=== PATIENT | male | born 1950 | race Caucasian/White ===

== ENCOUNTER 2017-05-03 09:09 | Emergency (ER) | payer MEDICARE, BC ==
[2017-05-03 10:34] LABS: ADD MAN DIFF? NO
[2017-05-03 10:40] LABS: WHITE BLOOD COUNT 10.4 10^3/ul (4.8-10.8)
[2017-05-03 10:40] LABS: ABNORMAL IP MESSAGE 1; BASOPHILS % 0.4 % (0.0-2.0); EOSINOPHILS % 0.3 % (0.0-7.0); HEMATOCRIT 32.5 % (42.0-52.0); HEMOGLOBIN 10.4 g/dl (14.0-18.0); LYMPHOCYTES # 1.1 10^3/ul (0.8-2.9); LYMPHOCYTES % 10.9 % (15.0-51.0); MEAN CORPUSCULAR HEMOGLOBIN 27.9 pg (29.0-33.0); MEAN CORPUSCULAR VOLUME 87.1 fl (82.0-101.0); MEAN PLATELET VOLUME 10.4 fl (7.4-10.4); MONOCYTE # 1.8 10^3/ul (0.3-0.9); NEUTROPHIL # 7.3 10^3/ul (1.6-7.5); NEUTROPHILS % 70.8 % (39.0-77.0); NUCLEATED RED BLOOD CELLS% 0.3 /100WBC (0.0-0.0); PLATELET COUNT 275 10^3/UL (140-415); POSITIVE DIFF @See below; RED BLOOD COUNT 3.73 10^6/ul (4.70-6.10); RED CELL DISTRIBUTION WIDTH 15.3 % (11.5-14.5)
[2017-05-03 10:59] LABS: LACTIC ACID 1.4 mmol/L (0.5-2.0)
[2017-05-03 10:59] LABS: ALANINE AMINOTRANSFERASE 26 IU/L (13-69); ALBUMIN 3.9 g/dl (3.3-4.9); ALKALINE PHOSPHATASE 99 IU/L (42-121); ANION GAP 15 (8-16); ASPARTATE AMINO TRANSFERASE 34 IU/L (15-46); BILIRUBIN,INDIRECT 1.8 mg/dl (0-1.1); BILIRUBIN,TOTAL 1.9 mg/dl (0.2-1.3); BLOOD UREA NITROGEN 29 mg/dl (7-20); CARBON DIOXIDE 31 mmol/L (21-31); CHLORIDE 96 mmol/L (97-110); CREATININE 4.16 mg/dl (0.61-1.24); GLUCOSE 114 mg/dl (70-220); POTASSIUM 3.4 mmol/L (3.5-5.1); SODIUM 139 mmol/L (135-144); TOTAL PROTEIN 8.2 g/dl (6.1-8.1)
[2017-05-03 11:00] LABS: INR 1.17; PROTIME 15.1 Sec (11.9-14.9); PT RATIO 1.2
[2017-05-03 11:01] LABS: PARTIAL THROMBOPLASTIN TIME 35.4 Sec (25.0-35.0)
[2017-05-03 11:06] LABS: B-TYPE NATRIURETIC PEPTIDE 1920 PG/ML (0-125)
[2017-05-03 11:09] LABS: TROPONIN-I 0.052 ng/ml (0.00-0.12)
[2017-05-03] MEDS: morphine 2 MG INJ IV (11:36)
[2017-05-03] MEDS: SOD CHLORIDE 0.9% 1,000 ML IV (11:52)
[2017-05-03] MEDS: ONDANSETRON 4 MG INJ IV ×2 (11:52→14:36)
[2017-05-03] MEDS: CEFTRIAXONE 1 GM/50 ML (PMX) 50 ML IVPB (14:36)
[2017-05-03] MEDS: ACETAMINOPHEN 500 MG TAB PO (14:36)
[2017-05-03] MEDS: IBUPROFEN 800 MG TAB PO (14:37)
[2017-05-03 14:39] LABS: ADD UMIC YES; UR ASCORBIC ACID NEGATIVE (NEGATIVE); UR BACTERIA FEW /HPF (NONE SEEN); UR BILIRUBIN (Dip) NEGATIVE (NEGATIVE); UR BLOOD (Dip) NEGATIVE (NEGATIVE); UR CLARITY CLEAR (CLEAR); UR COLOR AMBER (YELLOW); UR GLUCOSE (Dip) NEGATIVE (NEGATIVE); UR KETONES (Dip) NEGATIVE (NEGATIVE); UR LEUKOCYTE ESTERASE (Dip) NEGATIVE Leu/ul (NEGATIVE); UR NITRITE (Dip) NEGATIVE (NEGATIVE); UR RBC 2 /HPF (0-5); UR SPECIFIC GRAVITY (Dip) 1.016 (1.003-1.030); UR TOTAL PROTEIN (Dip) 3+ mg/dl (NEGATIVE); UR UROBILINOGEN (Dip) 2+ mg/dL (NEGATIVE); UR WBC 3 /HPF (0-5)
[2017-05-03] MEDS: IPRATROPIUM (NEB) 0.5 MG/2.5 ML AMP NEB (14:57)
[2017-05-03] MEDS: ALBUTEROL 0.083% (NEB) 2.5 MG/3 ML AMP NEB (14:57)
== END 2017-05-03 16:08 | disposition home or self-care (01) ==
LOC: FTE 09:09
DX: J20.9 Acute bronchitis, unspecified (principal); N18.6 End stage renal disease; Z99.2 Dependence on renal dialysis
CPT/HCPCS: 36415; 71045; 80053; 81001; 83605; 83880; 84484; 85025; 85610; 85730; 87040; 87400; 93005; 94664; 96374; 96375; 96376; 99285-25

== ENCOUNTER 2017-05-06 09:38 | Emergency (ER) | payer MEDICARE, BC ==
[2017-05-06 12:38] LABS: URINE BLOOD (Dip) POC Trace-intact (NEGATIVE); URINE GLUCOSE (Dip) POC Negative (NEGATIVE); URINE KETONES (Dip) POC Negative (NEGATIVE); URINE LEUKOCYTE EST (Dip) POC Negative (NEGATIVE); URINE NITRITE (Dip) POC Negative (NEGATIVE); URINE TOTAL PROTEIN POC 2+ (NEGATIVE)
[2017-05-06 12:43] LABS: ADD MAN DIFF? NO
[2017-05-06 12:47] LABS: ABNORMAL IP MESSAGE 1; BASOPHIL # 0.1 10^3/ul (0.0-0.1); BASOPHILS % 0.5 % (0.0-2.0); EOSINOPHILS # 0.3 10^3/ul (0.0-0.5); EOSINOPHILS % 2.1 % (0.0-7.0); HEMATOCRIT 29.3 % (42.0-52.0); HEMOGLOBIN 9.3 g/dl (14.0-18.0); LYMPHOCYTES # 1.5 10^3/ul (0.8-2.9); LYMPHOCYTES % 10.7 % (15.0-51.0); MEAN CORPUSCULAR HEMOGLOBIN 27.7 pg (29.0-33.0); MEAN CORPUSCULAR HGB CONC 31.7 g/dl (32.0-37.0); MEAN CORPUSCULAR VOLUME 87.2 fl (82.0-101.0); MEAN PLATELET VOLUME 9.9 fl (7.4-10.4); MONOCYTES % 14.6 % (0.0-11.0); NEUTROPHIL # 9.7 10^3/ul (1.6-7.5); NEUTROPHILS % 71.2 % (39.0-77.0); PLATELET COUNT 404 10^3/UL (140-415); POSITIVE DIFF @See below; RED BLOOD COUNT 3.36 10^6/ul (4.70-6.10); RED CELL DISTRIBUTION WIDTH 15.5 % (11.5-14.5)
[2017-05-06 12:47] LABS: WHITE BLOOD COUNT 13.6 10^3/ul (4.8-10.8)
[2017-05-06 13:00] LABS: ADD UMIC YES; UR ASCORBIC ACID NEGATIVE (NEGATIVE); UR BILIRUBIN (Dip) NEGATIVE (NEGATIVE); UR BLOOD (Dip) NEGATIVE (NEGATIVE); UR CLARITY CLEAR (CLEAR); UR COLOR YELLOW (YELLOW); UR GLUCOSE (Dip) NEGATIVE (NEGATIVE); UR KETONES (Dip) NEGATIVE (NEGATIVE); UR LEUKOCYTE ESTERASE (Dip) NEGATIVE Leu/ul (NEGATIVE); UR NITRITE (Dip) NEGATIVE (NEGATIVE); UR RBC 1 /HPF (0-5); UR TOTAL PROTEIN (Dip) 2+ mg/dl (NEGATIVE); UR UROBILINOGEN (Dip) 2+ mg/dL (NEGATIVE); UR WBC 3 /HPF (0-5)
[2017-05-06 13:04] LABS: ALANINE AMINOTRANSFERASE 31 IU/L (13-69); ALBUMIN 3.9 g/dl (3.3-4.9); ALBUMIN/GLOBULIN RATIO 0.92; ALKALINE PHOSPHATASE 117 IU/L (42-121); ANION GAP 14 (8-16); ASPARTATE AMINO TRANSFERASE 28 IU/L (15-46); BILIRUBIN,INDIRECT 1.3 mg/dl (0-1.1); BILIRUBIN,TOTAL 1.3 mg/dl (0.2-1.3); BLOOD UREA NITROGEN 32 mg/dl (7-20); CALCIUM 9.1 mg/dl (8.4-10.2); CARBON DIOXIDE 33 mmol/L (21-31); CHLORIDE 96 mmol/L (97-110); CREATININE 5.53 mg/dl (0.61-1.24); GLUCOSE 99 mg/dl (70-220); LIPASE 313 U/L (23-300); POTASSIUM 3.3 mmol/L (3.5-5.1); SODIUM 140 mmol/L (135-144); TOTAL PROTEIN 8.1 g/dl (6.1-8.1)
[2017-05-06 13:05] LABS: INR 1.06; PROTIME 13.9 Sec (11.9-14.9); PT RATIO 1.1
[2017-05-06 13:07] LABS: PARTIAL THROMBOPLASTIN TIME 47.7 Sec (25.0-35.0)
[2017-05-06] MEDS ORDERED: ONDANSETRON 4 MG INJ (14:21)
[2017-05-06] MEDS ORDERED: morphine 2 MG INJ (14:21)
[2017-05-06] MEDS: morphine 2 MG INJ IV ×4 (14:24→21:45)
[2017-05-06] MEDS: ONDANSETRON 4 MG INJ IV ×2 (14:24→21:45)
[2017-05-06] MEDS: IOHEXOL 100 ML (17:21)
[2017-05-06] MEDS: IOHEXOL 350MG/ML 50 ML BTL (17:21)
[2017-05-06] MEDS: SOD CHLORIDE 0.9% 100 ML (17:21)
[2017-05-06] MEDS ORDERED: niCARdipine-NS 0.1MG/ML DRIP 200 ML IV (19:30)
[2017-05-06] MEDS: ESMOLOL 250 ML IV (19:38)
[2017-05-06] MEDS ORDERED: niCARdipine 25 MG in SOD CHLORIDE 0.9% 250 ML IV (20:00)
[2017-05-06] MEDS: niCARdipine 25 MG in SOD CHLORIDE 0.9% 240 ML IV (21:24)
== END 2017-05-06 22:20 | disposition short-term general hospital (02) ==
LOC: E/R 09:38
DX: I71.4 Abdominal aortic aneurysm, without rupture (principal); E87.6 Hypokalemia; D64.9 Anemia, unspecified; N18.9 Chronic kidney disease, unspecified; Z99.2 Dependence on renal dialysis
CPT/HCPCS: 36415; 71045; 71275; 74176; 75635; 80053; 81001; 81003; 83690; 85025; 85610; 85730; 96374; 96375; 96376; 99291-25

== ENCOUNTER 2017-10-25 11:23 | Emergency (ER) | payer MEDICARE, BC ==
[2017-10-25] MEDS: ONDANSETRON 4 MG INJ IV (11:59)
[2017-10-25] MEDS: HYDROmorphONE 1 MG/ML SYG IV (11:59)
[2017-10-25 12:23] LABS: ADD MAN DIFF? NO
[2017-10-25 12:25] LABS: WHITE BLOOD COUNT 10.7 10^3/ul (4.8-10.8)
[2017-10-25 12:25] LABS: BASOPHIL # 0.1 10^3/ul (0.0-0.1); BASOPHILS % 0.7 % (0.0-2.0); EOSINOPHILS # 0.2 10^3/ul (0.0-0.5); EOSINOPHILS % 2.2 % (0.0-7.0); HEMATOCRIT 37.1 % (42.0-52.0); HEMOGLOBIN 11.3 g/dl (14.0-18.0); IMMATURE GRANS #M 0.05 10^3/ul; IMMATURE GRANS % (M) 0.5 %; LYMPHOCYTES # 2.2 10^3/ul (0.8-2.9); MEAN CORPUSCULAR HEMOGLOBIN 28.4 pg (29.0-33.0); MEAN CORPUSCULAR HGB CONC 30.5 g/dl (32.0-37.0); MEAN CORPUSCULAR VOLUME 93.2 fl (82.0-101.0); MEAN PLATELET VOLUME 10.8 fl (7.4-10.4); MONOCYTE # 1.5 10^3/ul (0.3-0.9); MONOCYTES % 14.1 % (0.0-11.0); NEUTROPHIL # 6.6 10^3/ul (1.6-7.5); NEUTROPHILS % 61.5 % (39.0-77.0); PLATELET COUNT 170 10^3/UL (140-415); RED BLOOD COUNT 3.98 10^6/ul (4.70-6.10); RED CELL DISTRIBUTION WIDTH 17.1 % (11.5-14.5)
[2017-10-25 12:30] LABS: ALBUMIN 4.3 g/dl (3.3-4.9); ALBUMIN/GLOBULIN RATIO 0.97; ALKALINE PHOSPHATASE 86 IU/L (42-121); ANION GAP 20 (8-16); ASPARTATE AMINO TRANSFERASE 16 IU/L (15-46); BILIRUBIN,INDIRECT 0.5 mg/dl (0-1.1); BILIRUBIN,TOTAL 0.5 mg/dl (0.2-1.3); BLOOD UREA NITROGEN 41 mg/dl (7-20); CALCIUM 10.1 mg/dl (8.4-10.2); CARBON DIOXIDE 29 mmol/L (21-31); CHLORIDE 95 mmol/L (97-110); CREATININE 11.53 mg/dl (0.61-1.24); GLUCOSE 98 mg/dl (70-220); LIPASE 144 U/L (23-300); POTASSIUM 4.3 mmol/L (3.5-5.1); SODIUM 140 mmol/L (135-144); TOTAL PROTEIN 8.7 g/dl (6.1-8.1)
[2017-10-25 12:33] LABS: ALANINE AMINOTRANSFERASE < 6 IU/L (13-69)
[2017-10-25] MEDS: IODIXANOL LOCM 100 ML BTL (13:11)
[2017-10-25] MEDS: SOD CHLORIDE 0.9% 100 ML (13:11)
[2017-10-25] MEDS: NICARDipine HCL 30 MG CAPSULE PO (15:00)
== END 2017-10-25 16:20 | disposition short-term general hospital (02) ==
LOC: E/R 11:23
DX: I71.4 Abdominal aortic aneurysm, without rupture (principal); K59.00 Constipation, unspecified; N18.6 End stage renal disease; I12.0 Hypertensive chronic kidney disease with stage 5 chronic kidney disease or end stage renal disease; Z87.891 Personal history of nicotine dependence; Z99.2 Dependence on renal dialysis
CPT/HCPCS: 36415; 71275; 74177; 80053; 83690; 85025; 96374; 96375; 99285-25

== ENCOUNTER 2018-03-20 10:54 | Inpatient (IN) | payer MEDICARE, BC ==
[2018-03-20 11:40] LABS: ADD MAN DIFF? NO
[2018-03-20 11:45] LABS: BASOPHIL # 0.1 10^3/ul (0.0-0.1); BASOPHILS % 0.7 % (0.0-2.0); EOSINOPHILS # 0.3 10^3/ul (0.0-0.5); HEMATOCRIT 28.4 % (42.0-52.0); HEMOGLOBIN 8.4 g/dl (14.0-18.0); LYMPHOCYTES # 2.3 10^3/ul (0.8-2.9); LYMPHOCYTES % 19.1 % (15.0-51.0); MEAN CORPUSCULAR HEMOGLOBIN 27.8 pg (29.0-33.0); MEAN CORPUSCULAR HGB CONC 29.6 g/dl (32.0-37.0); MEAN PLATELET VOLUME 10.2 fl (7.4-10.4); MONOCYTE # 1.5 10^3/ul (0.3-0.9); MONOCYTES % 12.3 % (0.0-11.0); NEUTROPHILS % 65.4 % (39.0-77.0); PLATELET COUNT 162 10^3/UL (140-415); RED BLOOD COUNT 3.02 10^6/ul (4.70-6.10); RED CELL DISTRIBUTION WIDTH 17.9 % (11.5-14.5)
[2018-03-20 11:45] LABS: WHITE BLOOD COUNT 12.2 10^3/ul (4.8-10.8)
[2018-03-20 12:06] LABS: INR 1.09; PROTIME 14.2 Sec (11.9-14.9); PT RATIO 1.1
[2018-03-20 12:07] LABS: PARTIAL THROMBOPLASTIN TIME 39.6 Sec (23.0-35.0)
[2018-03-20 12:12] LABS: ALANINE AMINOTRANSFERASE 7 IU/L (13-69); ALBUMIN 4.1 g/dl (3.3-4.9); ALBUMIN/GLOBULIN RATIO 0.91; ALKALINE PHOSPHATASE 88 IU/L (42-121); AMYLASE 194 U/L (11-123); ANION GAP 16 (5-13); ASPARTATE AMINO TRANSFERASE 24 IU/L (15-46); BLOOD UREA NITROGEN 58 mg/dl (7-20); CALCIUM 9.2 mg/dl (8.4-10.2); CARBON DIOXIDE 27 mmol/L (21-31); CHLORIDE 100 mmol/L (97-110); Estimated GFR 4 mL/min (>60); GLUCOSE 96 mg/dl (70-220); LIPASE 176 U/L (23-300); POTASSIUM 4.9 mmol/L (3.5-5.1); SODIUM 143 mmol/L (135-144); TOTAL PROTEIN 8.6 g/dl (6.1-8.1)
[2018-03-20] MEDS: BENZONATATE 100 MG CAP PO (12:12)
[2018-03-20] MEDS: ALBUTEROL 0.5% (NEB) 2.5 MG/0.5 ML AMP NEB (12:22)
[2018-03-20] MEDS: IPRATROPIUM (NEB) 0.5 MG/2.5 ML AMP NEB (12:22)
[2018-03-20 12:27] LABS: CREATINE KINASE 83 IU/L (23-200)
[2018-03-20 12:40] LABS: CK INDEX 0.8; TROPONIN-I 0.092 ng/ml (0.000-0.120)
[2018-03-20] MEDS: CEFTRIAXONE 1 GM/50 ML (PMX) 50 ML IVPB (12:46)
[2018-03-20 12:58] LABS: AADO2 Venous 223.6 mmHg; Allen Test ACCEPTAB; MODE MASK - SIMPLE; MetHgb Venous 0.3 %; Site Right Radial; Venous COHb 1.5 %; Venous Fraction OxyHgb 97.7 %; Venous Oxygen Sat 99.5 mmHG (55.0-75.0); Venous Total Hemglobin 8.8 g/dl
[2018-03-20] MEDS ORDERED: ACETAMINOPHEN 325 MG TAB PO (13:30)
[2018-03-20] MEDS ORDERED: ONDANSETRON 4 MG INJ IV (13:30)
[2018-03-20] MEDS: IODIXANOL LOCM 100 ML BTL (13:35)
[2018-03-20] MEDS: SOD CHLORIDE 0.9% 100 ML (13:35)
[2018-03-20] MEDS: AZITHROMYCIN 500MG/NS (PMX) 250 ML IV (13:40)
[2018-03-20] MEDS ORDERED: morphine 2 MG INJ IV (14:30)
[2018-03-20] MEDS ORDERED: HYDROCODONE/APAP (5/325) TAB PO (14:30)
[2018-03-20] MEDS ORDERED: NACL 0.9% 3 ML SYG IV (14:30)
[2018-03-20] MEDS ORDERED: hydrALAzine 20 MG INJ IV (15:00)
[2018-03-20] MEDS ORDERED: SODIUM CHLORIDE 0.9% 1L BAG IV (15:00)
[2018-03-20] MEDS ORDERED: ALBUMIN HUMAN 25% 100 ML IV (15:00)
[2018-03-20] MEDS ORDERED: CEFEPIME 1GM/50 ML (PMX) 50 ML IVPB ×2 (15:00→21:00)
[2018-03-20] MEDS ORDERED: PROMETHAZINE/CODEINE 5ML CUP PO (15:30)
[2018-03-20] MEDS ORDERED: ALBUTEROL/IPRATROPIUM (NEB) 3 ML AMP HHN (15:30)
[2018-03-20] MEDS: METHYLPREDNISOLONE 125 MG INJ IV (15:57)
[2018-03-20 16:41] LABS: HEPATITIS B SURFACE ANTIGEN NEGATIVE (NEGATIVE)
[2018-03-20 16:58] LABS: HEPATITIS B SURFACE ANTIBODY POSITIVE (NEGATIVE)
[2018-03-20] MEDS: LABETALOL HCL 20MG INJ IV (18:36)
[2018-03-20 19:10] LABS: TROPONIN-I 0.098 ng/ml (0.000-0.120)
[2018-03-20] MEDS: BUDESONIDE (NEB) 0.5MG/2ML AMP HHN (20:00)
[2018-03-20] MEDS: ALBUTEROL/IPRATROPIUM (NEB) 3 ML AMP HHN (20:00)
[2018-03-20] MEDS: METOPROLOL 50 MG TAB PO (20:04)
[2018-03-20] MEDS: hydrALAzine 20 MG INJ IV (21:08)
[2018-03-20] MEDS ORDERED: morphine SULFATE/PF (2 MG/2 ML) SYG IV (22:31)
[2018-03-20] MEDS: CEFEPIME 1GM/50 ML (PMX) 50 ML IVPB (23:03)
[2018-03-21 01:45] LABS: TROPONIN-I 0.086 ng/ml (0.000-0.120)
[2018-03-21] MEDS ORDERED: morphine SULFATE/PF (2 MG/2 ML) SYG IV (02:30)
[2018-03-21] MEDS: hydrALAzine 20 MG INJ IV (04:32)
[2018-03-21 06:40] LABS: IRON 35 ug/dl (35-150)
[2018-03-21 06:43] LABS: ALANINE AMINOTRANSFERASE 14 IU/L (13-69); ALBUMIN 3.4 g/dl (3.3-4.9); ALBUMIN/GLOBULIN RATIO 0.85; ALKALINE PHOSPHATASE 66 IU/L (42-121); ANION GAP 16 (5-13); ASPARTATE AMINO TRANSFERASE 15 IU/L (15-46); BILIRUBIN,INDIRECT 0.1 mg/dl (0-1.1); BILIRUBIN,TOTAL 0.1 mg/dl (0.2-1.3); BLOOD UREA NITROGEN 46 mg/dl (7-20); CALCIUM 9.1 mg/dl (8.4-10.2); CARBON DIOXIDE 28 mmol/L (21-31); CHLORIDE 96 mmol/L (97-110); CHOL/HDL RATIO 4.4 RATIO; CHOLESTEROL 211 mg/dl (100-200); CREATININE 8.69 mg/dl (0.61-1.24); Estimated GFR 6 mL/min (>60); GLUCOSE 113 mg/dl (70-220); HDL CHOLESTEROL 47 mg/dl (30-78); LDL CHOLESTEROL,CALCULATED 146 mg/dl; MAGNESIUM 1.8 mg/dl (1.7-2.5); POTASSIUM 5.2 mmol/L (3.5-5.1); SODIUM 140 mmol/L (135-144); TOTAL PROTEIN 7.4 g/dl (6.1-8.1); TRIGLYCERIDES 88 mg/dl (0-149)
[2018-03-21 06:49] LABS: % IRON SATURATION 19 % SAT (22-52); TOTAL IRON BINDING CAPACITY 181 ug/dl (241-421)
[2018-03-21 07:00] LABS: WHITE BLOOD COUNT 9.8 10^3/ul (4.8-10.8)
[2018-03-21 07:00] LABS: ADD MAN DIFF? NO; BASOPHILS % 0.3 % (0.0-2.0); EOSINOPHILS % 0.1 % (0.0-7.0); HEMATOCRIT 25.1 % (42.0-52.0); HEMOGLOBIN 7.8 g/dl (14.0-18.0); LYMPHOCYTES # 1.2 10^3/ul (0.8-2.9); LYMPHOCYTES % 12.5 % (15.0-51.0); MEAN CORPUSCULAR HEMOGLOBIN 28.2 pg (29.0-33.0); MEAN CORPUSCULAR HGB CONC 31.1 g/dl (32.0-37.0); MEAN CORPUSCULAR VOLUME 90.6 fl (82.0-101.0); MEAN PLATELET VOLUME 10.8 fl (7.4-10.4); MONOCYTE # 1.3 10^3/ul (0.3-0.9); MONOCYTES % 13.4 % (0.0-11.0); NEUTROPHIL # 7.2 10^3/ul (1.6-7.5); NEUTROPHILS % 73.3 % (39.0-77.0); PLATELET COUNT 203 10^3/UL (140-415); RED BLOOD COUNT 2.77 10^6/ul (4.70-6.10); RED CELL DISTRIBUTION WIDTH 17.8 % (11.5-14.5)
[2018-03-21 07:01] LABS: HEMOGLOBIN A1C 4.7 % (0-5.9)
[2018-03-21 07:13] LABS: FERRITIN > 1000.0 ng/ml (11.1-264.0)
[2018-03-21] MEDS: ALBUTEROL/IPRATROPIUM (NEB) 3 ML AMP HHN ×3 (07:51→20:02)
[2018-03-21] MEDS: BUDESONIDE (NEB) 0.5MG/2ML AMP HHN ×2 (07:51→20:02)
[2018-03-21] MEDS: CEFEPIME 1GM/50 ML (PMX) 50 ML IVPB (08:55)
[2018-03-21] MEDS: METOPROLOL 50 MG TAB PO ×2 (08:55→20:36)
[2018-03-21] MEDS: LISINOPRIL 5 MG TAB PO (08:55)
[2018-03-21 09:20] LABS: RETICULOCYTE RBC 2.74
[2018-03-21 09:20] LABS: RETICULOCYTE COUNT % 2.5 % (0.5-1.5)
[2018-03-21] MEDS ORDERED: VANCOMYCIN IV PER PHARMACY XX (18:30)
[2018-03-21] MEDS: VANCOMYCIN 1.25 GM in SOD CHLORIDE 0.9% 250 ML IVPB (20:36)
[2018-03-21] MEDS: ACETAMINOPHEN 325 MG TAB PO (20:41)
[2018-03-22] MEDS: ONDANSETRON 4 MG INJ IV (05:26)
[2018-03-22 06:24] LABS: ADD MAN DIFF? NO
[2018-03-22 06:38] LABS: BASOPHIL # 0.1 10^3/ul (0.0-0.1); BASOPHILS % 0.7 % (0.0-2.0); EOSINOPHILS # 0.4 10^3/ul (0.0-0.5); EOSINOPHILS % 4.8 % (0.0-7.0); HEMATOCRIT 27.3 % (42.0-52.0); HEMOGLOBIN 8.2 g/dl (14.0-18.0); LYMPHOCYTES # 1.3 10^3/ul (0.8-2.9); MEAN CORPUSCULAR HEMOGLOBIN 28.3 pg (29.0-33.0); MEAN CORPUSCULAR VOLUME 94.1 fl (82.0-101.0); MEAN PLATELET VOLUME 10.5 fl (7.4-10.4); MONOCYTE # 1.5 10^3/ul (0.3-0.9); MONOCYTES % 16.4 % (0.0-11.0); NEUTROPHIL # 5.5 10^3/ul (1.6-7.5); NEUTROPHILS % 62.4 % (39.0-77.0); PLATELET COUNT 184 10^3/UL (140-415); RED CELL DISTRIBUTION WIDTH 17.7 % (11.5-14.5)
[2018-03-22 06:38] LABS: WHITE BLOOD COUNT 8.8 10^3/ul (4.8-10.8)
[2018-03-22 06:50] LABS: ANION GAP 14 (5-13); BLOOD UREA NITROGEN 34 mg/dl (7-20); CARBON DIOXIDE 28 mmol/L (21-31); CHLORIDE 98 mmol/L (97-110); CREATININE 6.74 mg/dl (0.61-1.24); Estimated GFR 8 mL/min (>60); GLUCOSE 92 mg/dl (70-220); MAGNESIUM 1.9 mg/dl (1.7-2.5); PHOSPHORUS 6.5 mg/dl (2.5-4.9); SODIUM 140 mmol/L (135-144)
[2018-03-22 06:57] LABS: POTASSIUM 5.3 mmol/L (3.5-5.1)
[2018-03-22] MEDS: METOPROLOL 50 MG TAB PO ×2 (07:50→19:49)
[2018-03-22] MEDS: LISINOPRIL 5 MG TAB PO ×2 (07:51→14:55)
[2018-03-22] MEDS: BUDESONIDE (NEB) 0.5MG/2ML AMP HHN ×2 (08:10→20:17)
[2018-03-22] MEDS: ALBUTEROL/IPRATROPIUM (NEB) 3 ML AMP HHN ×3 (08:10→20:17)
[2018-03-22] MEDS: DOCUSATE SODIUM 100 MG CAP PO ×2 (10:30→19:48)
[2018-03-22] MEDS: POLYETHYLENE GLYCOL 17 GM PACKET PO (10:34)
[2018-03-22] MEDS: SOD FERRIC GLUC COMPLX 125 MG in SOD CHLORIDE 0.9% 100 ML IVPB (14:51)
[2018-03-22] MEDS: CEFEPIME 1GM/50 ML (PMX) 50 ML IVPB (23:21)
[2018-03-23 05:59] LABS: ADD MAN DIFF? NO
[2018-03-23 06:03] LABS: BASOPHIL # 0.1 10^3/ul (0.0-0.1); BASOPHILS % 0.6 % (0.0-2.0); EOSINOPHILS # 0.6 10^3/ul (0.0-0.5); EOSINOPHILS % 6.6 % (0.0-7.0); HEMATOCRIT 24.3 % (42.0-52.0); HEMOGLOBIN 7.5 g/dl (14.0-18.0); LYMPHOCYTES # 1.8 10^3/ul (0.8-2.9); LYMPHOCYTES % 20.2 % (15.0-51.0); MEAN CORPUSCULAR HEMOGLOBIN 28.7 pg (29.0-33.0); MEAN CORPUSCULAR HGB CONC 30.9 g/dl (32.0-37.0); MEAN CORPUSCULAR VOLUME 93.1 fl (82.0-101.0); MEAN PLATELET VOLUME 10.5 fl (7.4-10.4); MONOCYTE # 1.4 10^3/ul (0.3-0.9); MONOCYTES % 15.2 % (0.0-11.0); NEUTROPHIL # 5.1 10^3/ul (1.6-7.5); NEUTROPHILS % 56.8 % (39.0-77.0); PLATELET COUNT 159 10^3/UL (140-415); RED BLOOD COUNT 2.61 10^6/ul (4.70-6.10); RED CELL DISTRIBUTION WIDTH 17.4 % (11.5-14.5)
[2018-03-23 06:46] LABS: VANCOMYCIN,RANDOM 15.3 ug/ml
[2018-03-23 06:49] LABS: ANION GAP 15 (5-13); BLOOD UREA NITROGEN 57 mg/dl (7-20); CALCIUM 8.6 mg/dl (8.4-10.2); CARBON DIOXIDE 26 mmol/L (21-31); CHLORIDE 96 mmol/L (97-110); CREATININE 9.15 mg/dl (0.61-1.24); Estimated GFR 6 mL/min (>60); GLUCOSE 89 mg/dl (70-220); MAGNESIUM 1.8 mg/dl (1.7-2.5); PHOSPHORUS 7.5 mg/dl (2.5-4.9); POTASSIUM 5.7 mmol/L (3.5-5.1); SODIUM 137 mmol/L (135-144)
[2018-03-23] MEDS: ALBUTEROL/IPRATROPIUM (NEB) 3 ML AMP HHN ×3 (07:47→20:23)
[2018-03-23] MEDS: BUDESONIDE (NEB) 0.5MG/2ML AMP HHN ×2 (07:47→20:23)
[2018-03-23] MEDS: LISINOPRIL 5 MG TAB PO (08:42)
[2018-03-23] MEDS: METOPROLOL 50 MG TAB PO ×2 (08:42→20:11)
[2018-03-23] MEDS: DOCUSATE SODIUM 100 MG CAP PO ×2 (09:00→20:11)
[2018-03-23] MEDS: VANCOMYCIN 1 GM 250 ML IVPB (18:25)
[2018-03-23] MEDS: SOD FERRIC GLUC COMPLX 125 MG in SOD CHLORIDE 0.9% 100 ML IVPB (20:10)
[2018-03-24] MEDS: CEFEPIME 1GM/50 ML (PMX) 50 ML IVPB ×2 (01:16→23:59)
[2018-03-24 07:46] LABS: ADD MAN DIFF? NO
[2018-03-24 07:52] LABS: BASOPHIL # 0.1 10^3/ul (0.0-0.1); BASOPHILS % 0.7 % (0.0-2.0); EOSINOPHILS # 0.5 10^3/ul (0.0-0.5); EOSINOPHILS % 5.5 % (0.0-7.0); HEMATOCRIT 25.8 % (42.0-52.0); HEMOGLOBIN 7.6 g/dl (14.0-18.0); LYMPHOCYTES # 1.7 10^3/ul (0.8-2.9); LYMPHOCYTES % 17.4 % (15.0-51.0); MEAN CORPUSCULAR HEMOGLOBIN 27.6 pg (29.0-33.0); MEAN CORPUSCULAR HGB CONC 29.5 g/dl (32.0-37.0); MEAN CORPUSCULAR VOLUME 93.8 fl (82.0-101.0); MEAN PLATELET VOLUME 10.7 fl (7.4-10.4); MONOCYTE # 1.5 10^3/ul (0.3-0.9); MONOCYTES % 15.6 % (0.0-11.0); NEUTROPHIL # 5.8 10^3/ul (1.6-7.5); NEUTROPHILS % 60.1 % (39.0-77.0); PLATELET COUNT 185 10^3/UL (140-415); RED BLOOD COUNT 2.75 10^6/ul (4.70-6.10); RED CELL DISTRIBUTION WIDTH 17.5 % (11.5-14.5)
[2018-03-24 07:52] LABS: WHITE BLOOD COUNT 9.6 10^3/ul (4.8-10.8)
[2018-03-24] MEDS: ALBUTEROL/IPRATROPIUM (NEB) 3 ML AMP HHN ×3 (08:03→20:27)
[2018-03-24 08:13] LABS: ALBUMIN 3.2 g/dl (3.3-4.9); ANION GAP 10 (5-13); BLOOD UREA NITROGEN 41 mg/dl (7-20); CALCIUM 8.9 mg/dl (8.4-10.2); CARBON DIOXIDE 30 mmol/L (21-31); CHLORIDE 97 mmol/L (97-110); CREATININE 7.34 mg/dl (0.61-1.24); GLUCOSE 82 mg/dl (70-220); MAGNESIUM 1.8 mg/dl (1.7-2.5); PHOSPHORUS 6.9 mg/dl (2.5-4.9); POTASSIUM 5.2 mmol/L (3.5-5.1); SODIUM 137 mmol/L (135-144)
[2018-03-24] MEDS: DOCUSATE SODIUM 100 MG CAP PO ×2 (08:26→21:19)
[2018-03-24] MEDS: LISINOPRIL 5 MG TAB PO (08:27)
[2018-03-24] MEDS: METOPROLOL 50 MG TAB PO ×2 (08:27→21:20)
[2018-03-24] MEDS: BUDESONIDE (NEB) 0.5MG/2ML AMP HHN ×2 (10:12→20:27)
[2018-03-24] MEDS: NA POLYST SULFON 15 GM/60 ML BTL PO ×2 (11:26)
[2018-03-24] MEDS: SOD FERRIC GLUC COMPLX 125 MG in SOD CHLORIDE 0.9% 100 ML IVPB (13:16)
[2018-03-25] MEDS: hydrALAzine 20 MG INJ IV (00:01)
[2018-03-25] MEDS: ACETAMINOPHEN 325 MG TAB PO (02:30)
[2018-03-25 06:58] LABS: ADD MAN DIFF? NO
[2018-03-25 07:04] LABS: BASOPHIL # 0.1 10^3/ul (0.0-0.1); BASOPHILS % 0.6 % (0.0-2.0); EOSINOPHILS # 0.5 10^3/ul (0.0-0.5); HEMATOCRIT 25.1 % (42.0-52.0); HEMOGLOBIN 7.5 g/dl (14.0-18.0); LYMPHOCYTES # 1.5 10^3/ul (0.8-2.9); LYMPHOCYTES % 14.8 % (15.0-51.0); MEAN CORPUSCULAR HEMOGLOBIN 28.2 pg (29.0-33.0); MEAN CORPUSCULAR HGB CONC 29.9 g/dl (32.0-37.0); MEAN CORPUSCULAR VOLUME 94.4 fl (82.0-101.0); MEAN PLATELET VOLUME 10.8 fl (7.4-10.4); MONOCYTE # 1.5 10^3/ul (0.3-0.9); MONOCYTES % 14.2 % (0.0-11.0); NEUTROPHIL # 6.6 10^3/ul (1.6-7.5); NEUTROPHILS % 64.2 % (39.0-77.0); PLATELET COUNT 203 10^3/UL (140-415); RED BLOOD COUNT 2.66 10^6/ul (4.70-6.10); RED CELL DISTRIBUTION WIDTH 17.4 % (11.5-14.5)
[2018-03-25 07:04] LABS: WHITE BLOOD COUNT 10.3 10^3/ul (4.8-10.8)
[2018-03-25 07:28] LABS: ALBUMIN 3.1 g/dl (3.3-4.9); ANION GAP 14 (5-13); BLOOD UREA NITROGEN 58 mg/dl (7-20); CALCIUM 9.1 mg/dl (8.4-10.2); CARBON DIOXIDE 25 mmol/L (21-31); CHLORIDE 98 mmol/L (97-110); CREATININE 9.49 mg/dl (0.61-1.24); GLUCOSE 80 mg/dl (70-220); MAGNESIUM 1.7 mg/dl (1.7-2.5); PHOSPHORUS 8.2 mg/dl (2.5-4.9); POTASSIUM 5.3 mmol/L (3.5-5.1); SODIUM 137 mmol/L (135-144)
[2018-03-25] MEDS: DOCUSATE SODIUM 100 MG CAP PO ×2 (08:20→21:49)
[2018-03-25] MEDS: METOPROLOL 50 MG TAB PO ×2 (08:20→21:50)
[2018-03-25] MEDS: ALBUTEROL/IPRATROPIUM (NEB) 3 ML AMP HHN ×3 (08:22→19:53)
[2018-03-25] MEDS: BUDESONIDE (NEB) 0.5MG/2ML AMP HHN ×2 (08:22→19:53)
[2018-03-26] MEDS: CEFEPIME 1GM/50 ML (PMX) 50 ML IVPB (00:35)
[2018-03-26 05:41] LABS: ADD MAN DIFF? NO
[2018-03-26 05:43] LABS: BASOPHIL # 0.1 10^3/ul (0.0-0.1); BASOPHILS % 0.9 % (0.0-2.0); EOSINOPHILS # 0.4 10^3/ul (0.0-0.5); EOSINOPHILS % 4.6 % (0.0-7.0); HEMATOCRIT 23.8 % (42.0-52.0); HEMOGLOBIN 7.2 g/dl (14.0-18.0); LYMPHOCYTES # 1.6 10^3/ul (0.8-2.9); LYMPHOCYTES % 17.1 % (15.0-51.0); MEAN CORPUSCULAR HEMOGLOBIN 28.2 pg (29.0-33.0); MEAN CORPUSCULAR HGB CONC 30.3 g/dl (32.0-37.0); MEAN CORPUSCULAR VOLUME 93.3 fl (82.0-101.0); MEAN PLATELET VOLUME 11.2 fl (7.4-10.4); MONOCYTE # 1.4 10^3/ul (0.3-0.9); MONOCYTES % 15.1 % (0.0-11.0); NEUTROPHIL # 5.8 10^3/ul (1.6-7.5); NEUTROPHILS % 61.1 % (39.0-77.0); PLATELET COUNT 212 10^3/UL (140-415); RED BLOOD COUNT 2.55 10^6/ul (4.70-6.10); RED CELL DISTRIBUTION WIDTH 17.5 % (11.5-14.5)
[2018-03-26 05:43] LABS: WHITE BLOOD COUNT 9.5 10^3/ul (4.8-10.8)
[2018-03-26 06:11] LABS: ALBUMIN 3.2 g/dl (3.3-4.9); ANION GAP 12 (5-13); BLOOD UREA NITROGEN 36 mg/dl (7-20); CALCIUM 9.2 mg/dl (8.4-10.2); CARBON DIOXIDE 28 mmol/L (21-31); CHLORIDE 100 mmol/L (97-110); CREATININE 7.26 mg/dl (0.61-1.24); GLUCOSE 95 mg/dl (70-220); MAGNESIUM 1.8 mg/dl (1.7-2.5); PHOSPHORUS 7.1 mg/dl (2.5-4.9); POTASSIUM 4.3 mmol/L (3.5-5.1); SODIUM 140 mmol/L (135-144)
[2018-03-26 06:11] LABS: VANCOMYCIN,RANDOM 17.4 ug/ml
[2018-03-26] MEDS: DOCUSATE SODIUM 100 MG CAP PO ×3 (08:11→20:41)
[2018-03-26] MEDS: METOPROLOL 50 MG TAB PO (08:11)
[2018-03-26] MEDS: POLYETHYLENE GLYCOL 17 GM PACKET PO (08:17)
[2018-03-26] MEDS: ALBUTEROL/IPRATROPIUM (NEB) 3 ML AMP HHN ×3 (08:34→20:19)
[2018-03-26] MEDS: BUDESONIDE (NEB) 0.5MG/2ML AMP HHN ×2 (08:34→20:19)
[2018-03-26] MEDS: LEVOFLOXACIN 500 MG TAB PO (17:57)
[2018-03-26] MEDS: VANCOMYCIN 1 GM 250 ML IVPB (17:58)
[2018-03-26] MEDS: METOPROLOL 25 MG TAB PO (20:42)
[2018-03-26] MEDS ORDERED: morphine LIQ (10 MG/5 ML) CUP PO (23:00)
[2018-03-27] MEDS: CEFEPIME 1GM/50 ML (PMX) 50 ML IVPB (00:07)
[2018-03-27] MEDS: ALBUTEROL/IPRATROPIUM (NEB) 3 ML AMP HHN ×3 (08:00→19:59)
[2018-03-27] MEDS: BUDESONIDE (NEB) 0.5MG/2ML AMP HHN ×2 (08:22→20:00)
[2018-03-27 08:57] LABS: ADD MAN DIFF? NO
[2018-03-27 08:58] LABS: WHITE BLOOD COUNT 7.9 10^3/ul (4.8-10.8)
[2018-03-27 08:58] LABS: ABNORMAL IP MESSAGE 1; BASOPHILS % 0.5 % (0.0-2.0); EOSINOPHILS # 0.4 10^3/ul (0.0-0.5); EOSINOPHILS % 5.1 % (0.0-7.0); HEMATOCRIT 20.3 % (42.0-52.0); LYMPHOCYTES # 1.6 10^3/ul (0.8-2.9); MEAN CORPUSCULAR HEMOGLOBIN 28.2 pg (29.0-33.0); MONOCYTE # 1.2 10^3/ul (0.3-0.9); MONOCYTES % 15.4 % (0.0-11.0); NEUTROPHIL # 4.6 10^3/ul (1.6-7.5); PLATELET COUNT 186 10^3/UL (140-415); POSITIVE DIFF @See below; RED BLOOD COUNT 2.16 10^6/ul (4.70-6.10); RED CELL DISTRIBUTION WIDTH 17.5 % (11.5-14.5)
[2018-03-27] MEDS: DOCUSATE SODIUM 100 MG CAP PO ×2 (09:00→20:12)
[2018-03-27] MEDS: METOPROLOL 25 MG TAB PO ×2 (09:00→20:13)
[2018-03-27 09:05] LABS: HEMOGLOBIN 6.1 g/dl (14.0-18.0)
[2018-03-27 09:28] LABS: ALBUMIN 2.7 g/dl (3.3-4.9); ANION GAP 11 (5-13); BLOOD UREA NITROGEN 47 mg/dl (7-20); CALCIUM 8.8 mg/dl (8.4-10.2); CARBON DIOXIDE 26 mmol/L (21-31); CHLORIDE 99 mmol/L (97-110); CREATININE 9.39 mg/dl (0.61-1.24); GLUCOSE 80 mg/dl (70-220); MAGNESIUM 1.7 mg/dl (1.7-2.5); POTASSIUM 4.7 mmol/L (3.5-5.1); SODIUM 136 mmol/L (135-144)
[2018-03-27] MEDS: POLYETHYLENE GLYCOL 17 GM PACKET PO (12:53)
[2018-03-27 22:01] LABS: IMMEDIATE SPIN CROSSMATCH 1 3
[2018-03-28] MEDS: CEFEPIME 1GM/50 ML (PMX) 50 ML IVPB (01:57)
[2018-03-28] MEDS: traZODone 50 MG TAB PO (02:11)
[2018-03-28 07:10] LABS: ADD MAN DIFF? NO
[2018-03-28 07:16] LABS: WHITE BLOOD COUNT 9.7 10^3/ul (4.8-10.8)
[2018-03-28 07:16] LABS: BASOPHIL # 0.1 10^3/ul (0.0-0.1); BASOPHILS % 0.9 % (0.0-2.0); EOSINOPHILS # 0.4 10^3/ul (0.0-0.5); EOSINOPHILS % 3.9 % (0.0-7.0); LYMPHOCYTES % 20.4 % (15.0-51.0); MEAN CORPUSCULAR HEMOGLOBIN 28.6 pg (29.0-33.0); MEAN CORPUSCULAR HGB CONC 31.7 g/dl (32.0-37.0); MEAN CORPUSCULAR VOLUME 90.4 fl (82.0-101.0); MEAN PLATELET VOLUME 10.7 fl (7.4-10.4); MONOCYTE # 1.4 10^3/ul (0.3-0.9); MONOCYTES % 14.4 % (0.0-11.0); NEUTROPHIL # 5.7 10^3/ul (1.6-7.5); NEUTROPHILS % 59.1 % (39.0-77.0); PLATELET COUNT 185 10^3/UL (140-415); RED BLOOD COUNT 3.32 10^6/ul (4.70-6.10); RED CELL DISTRIBUTION WIDTH 16.3 % (11.5-14.5)
[2018-03-28 07:33] LABS: ALBUMIN 3.3 g/dl (3.3-4.9); ANION GAP 14 (5-13); BLOOD UREA NITROGEN 38 mg/dl (7-20); CALCIUM 9.3 mg/dl (8.4-10.2); CARBON DIOXIDE 28 mmol/L (21-31); CHLORIDE 97 mmol/L (97-110); CREATININE 7.76 mg/dl (0.61-1.24); GLUCOSE 77 mg/dl (70-220); HEMOGLOBIN 9.5 g/dl (14.0-18.0); PHOSPHORUS 7.1 mg/dl (2.5-4.9); POTASSIUM 4.9 mmol/L (3.5-5.1); SODIUM 139 mmol/L (135-144)
[2018-03-28] MEDS: DOCUSATE SODIUM 100 MG CAP PO (09:00)
[2018-03-28] MEDS: METOPROLOL 25 MG TAB PO (09:00)
[2018-03-28] MEDS: ALBUTEROL/IPRATROPIUM (NEB) 3 ML AMP HHN (09:11)
[2018-03-28] MEDS: BUDESONIDE (NEB) 0.5MG/2ML AMP HHN (09:56)
[2018-03-30] MEDS ORDERED: VANCOMYCIN 1 GM 250 ML IVPB (18:00)
== END 2018-03-28 14:04 | disposition home or self-care (01) | DRG 871 ==
LOC: TEL 03-21 08:40 → E/R 10:54 → TEL 13:16
PROC: 5A1D70Z Performance of Urinary Filtration, Intermittent, Less than 6 Hours Per Day (ICD-10-PCS; principal; 2018-03-20)
DX: A41.9 Sepsis, unspecified organism (principal); J18.1 Lobar pneumonia, unspecified organism; N18.6 End stage renal disease; J96.01 Acute respiratory failure with hypoxia; I12.0 Hypertensive chronic kidney disease with stage 5 chronic kidney disease or end stage renal disease; I16.0 Hypertensive urgency; D50.9 Iron deficiency anemia, unspecified; Z98.890 Other specified postprocedural states; E87.5 Hyperkalemia; Z99.2 Dependence on renal dialysis
CPT/HCPCS: 36415; 36430; 71045; 71275; 75635; 80048; 80053; 80061; 80069; 80202; 82150; 82550; 82553; 82607; 82728; 82803; 83036; 83540; 83605; 83690; 83735; 84100; 84443; 84484; 85025; 85045; 85610; 85730; 86706; 86850; 86870; 86900; 86901; 86902; 86920; 87040; 87081; 87340; 87400; 90935; 93005; 94640; 94644; 96374; 99285-25

== ENCOUNTER 2018-07-15 22:33 | Emergency (ER) | payer MEDICARE, BC ==
[2018-07-16 00:37] LABS: ADD MAN DIFF? NO
[2018-07-16] MEDS: ONDANSETRON 4 MG INJ IV ×2 (00:37→03:08)
[2018-07-16] MEDS: morphine 4 MG/ML VIAL IV (00:37)
[2018-07-16 00:39] LABS: WHITE BLOOD COUNT 14.5 10^3/ul (4.8-10.8)
[2018-07-16 00:39] LABS: ABNORMAL IP MESSAGE 1; BASOPHIL # 0.1 10^3/ul (0.0-0.1); BASOPHILS % 0.5 % (0.0-2.0); EOSINOPHILS # 0.1 10^3/ul (0.0-0.5); EOSINOPHILS % 0.7 % (0.0-7.0); HEMATOCRIT 29.4 % (42.0-52.0); HEMOGLOBIN 8.8 g/dl (14.0-18.0); LYMPHOCYTES # 1.2 10^3/ul (0.8-2.9); LYMPHOCYTES % 8.4 % (15.0-51.0); MEAN CORPUSCULAR HEMOGLOBIN 27.9 pg (29.0-33.0); MEAN CORPUSCULAR HGB CONC 29.9 g/dl (32.0-37.0); MEAN CORPUSCULAR VOLUME 93.3 fl (82.0-101.0); MEAN PLATELET VOLUME 10.7 fl (7.4-10.4); MONOCYTE # 1.5 10^3/ul (0.3-0.9); MONOCYTES % 10.6 % (0.0-11.0); NEUTROPHIL # 11.5 10^3/ul (1.6-7.5); NEUTROPHILS % 79.1 % (39.0-77.0); PLATELET COUNT 159 10^3/UL (140-415); POSITIVE DIFF @See below; RED BLOOD COUNT 3.15 10^6/ul (4.70-6.10); RED CELL DISTRIBUTION WIDTH 17.4 % (11.5-14.5)
[2018-07-16 00:59] LABS: ANION GAP 14 (5-13); BLOOD UREA NITROGEN 31 mg/dl (7-20); CALCIUM 9.7 mg/dl (8.4-10.2); CARBON DIOXIDE 33 mmol/L (21-31); CHLORIDE 92 mmol/L (97-110); Estimated GFR 8 mL/min (>60); GLUCOSE 117 mg/dl (70-220); POTASSIUM 4.3 mmol/L (3.5-5.1); SODIUM 139 mmol/L (135-144)
[2018-07-16] MEDS: IOHEXOL 300MG/ML 150 ML BTL (01:25)
[2018-07-16] MEDS: SOD CHLORIDE 0.9% 100 ML (01:25)
[2018-07-16 01:29] LABS: INR 1.12; PROTIME 14.5 Sec (11.9-14.9); PT RATIO 1.1
[2018-07-16 01:30] LABS: PARTIAL THROMBOPLASTIN TIME 35.1 Sec (23.0-35.0)
[2018-07-16] MEDS: ESMOLOL 250 ML IV (01:48)
[2018-07-16] MEDS ORDERED: niCARdipine-NS 0.1MG/ML DRIP 200 ML IV (02:35)
[2018-07-16] MEDS: HYDROmorphONE 0.5 MG/0.5 ML SYG IV (03:08)
== END 2018-07-16 03:30 | disposition short-term general hospital (02) ==
LOC: E/R 22:33
DX: I71.4 Abdominal aortic aneurysm, without rupture (principal); I16.1 Hypertensive emergency; I12.0 Hypertensive chronic kidney disease with stage 5 chronic kidney disease or end stage renal disease; N18.6 End stage renal disease; Z99.2 Dependence on renal dialysis
CPT/HCPCS: 36415; 71275; 74177; 80048; 85025; 85610; 85730; 86850; 86870; 86900; 86901; 86902; 93005; 96374; 96375; 96376; 99285-25